=== PATIENT | male | born 1960 | race Two or more races ===

== ENCOUNTER 2018-09-07 10:13 | Outpatient (CLI) | payer OTHER | END 2018-09-07 10:22 | disposition home or self-care (01) | LOC: RAD 501 10:13 | DX: M25.562 Pain in left knee (principal) ==

== ENCOUNTER 2018-10-10 07:14 | Outpatient (CLI) | payer OTHER ==
[2018-10-10] MEDS ORDERED: MULTI VITAMIN1 EACH PO (11:25)
[2018-10-10] MEDS ORDERED: OMEGA-31000 MG PO (11:25)
== END 2018-10-10 07:20 | disposition home or self-care (01) ==
LOC: LAB 07:14
DX: D64.89 Other specified anemias (principal); E88.89 Other specified metabolic disorders; D68.8 Other specified coagulation defects; N39.0 Urinary tract infection, site not specified; Z76.89 Persons encountering health services in other specified circumstances; I49.8 Other specified cardiac arrhythmias

== ENCOUNTER 2018-10-24 05:20 | Day surgery (SDC) | payer OTHER ==
[~2018-10-24 05:20] MED LIST: MULTI VITAMIN1 EACH PO; OMEGA-31000 MG PO
== END 2018-10-24 14:10 | disposition home or self-care (01) ==
LOC: CIR.AMB 05:20
DX: M23.352 Other meniscus derangements, posterior horn of lateral meniscus, left knee (principal); M12.262 Villonodular synovitis (pigmented), left knee; M24.562 Contracture, left knee; M71.22 Synovial cyst of popliteal space [Baker], left knee